=== PATIENT | male | born 1975 | race Two or more races ===

== ENCOUNTER 2019-06-05 09:30 | Outpatient (CLI) | payer OTHER ==
[2019-06-05] MEDS ORDERED: None at this Time (10:34)
== END 2019-06-05 23:59 | disposition home or self-care (01) ==
LOC: STAR 09:30
PROVIDERS: ATTEND Orthopaedic Surgery
DX: Z02.9 Encounter for administrative examinations, unspecified (principal)

== ENCOUNTER 2019-06-15 09:32 | Day surgery (SDC) | payer OTHER ==
[~2019-06-15] VITALS: Ht 182.9 cm; Wt 151.7 kg
[~2019-06-15 09:32] MED LIST: BUPIVACAINE/PF-EPI 0.5% 1:200K ONE; LIDOCAINE/PF 1%-EPI 1:200K, 30 ML ONE; None at this Time
[2019-06-15 09:56] VITALS: BP 158/109
[2019-06-15] MEDS ORDERED: LACTATED RINGERS 1,000 ML IV ONE (09:56)
[2019-06-15] MEDS ORDERED: BUPIVACAINE/PF-EPI 0.5% 1:200K ONE (11:17)
[2019-06-15] MEDS ORDERED: BACITRACIN 50,000 UNIT ONE (11:17)
[2019-06-15] MEDS ORDERED: MIDAZOLAM 1 MG/ML, 2ML ONE (12:12)
[2019-06-15] MEDS ORDERED: FENTANYL PF 100 MCG/2ML ONE (12:12)
[2019-06-15] MEDS ORDERED: PROPOFOL 10 MG/ML, 20ML ONE (13:10)
[2019-06-15] MEDS ORDERED: CEFAZOLIN 1,000 MG ONE ×2 (13:10)
[2019-06-15] MEDS ORDERED: DEXAMETHASONE 4 MG/ML, 1ML ONE (13:10)
[2019-06-15] MEDS ORDERED: ONDANSETRON 2MG/ML, 2ML ONE (13:10)
[2019-06-15] MEDS ORDERED: KETOROLAC 30 MG/1 ML ONE (13:10)
[2019-06-15] MEDS ORDERED: PROMETHAZINE 25 MG/ML, 1ML IV PRN (13:30)
[2019-06-15] MEDS ORDERED: OXYcodone 5 MG/5 ML ORAL.SOL UDC PO PRN (13:30)
[2019-06-15] MEDS ORDERED: MIDAZOLAM 1 MG/ML, 2ML IV PRN (13:30)
[2019-06-15] MEDS ORDERED: HYDROmorphone 2 MG/ML, 1ML IVPush PRN (13:30)
[2019-06-15] MEDS ORDERED: FENTANYL PF 100 MCG/2ML IV PRN (13:30)
[2019-06-15] MEDS ORDERED: hydrALAzine 20 MG/ML, 1ML IV PRN (13:30)
[2019-06-15] MEDS ORDERED: ALBUTEROL/IPRATROPIUM 2.5MG/0.5MG, 3 ML NPPB PRN (13:30)
[2019-06-15] MEDS ORDERED: METOPROLOL 1 MG/ML, 5ML IV PRN (13:30)
[2019-06-15] MEDS ORDERED: ACETAMINOPHEN 325 MG TABLET PO PRN (13:30)
[2019-06-15] MEDS ORDERED: OXYcodone 5 MG/5 ML ORAL.SOL UDC ONE (13:41)
== END 2019-06-15 15:05 | disposition home or self-care (01) ==
LOC: OUT 09:32
PROVIDERS: ATTEND Orthopaedic Surgery
DX: M60.261 Foreign body granuloma of soft tissue, not elsewhere classified, right lower leg (principal); E66.01 Morbid (severe) obesity due to excess calories; Z68.42 Body mass index [BMI] 45.0-49.9, adult
CPT/HCPCS: 10120; 73590; J0690; J1100; J1885; J2250; J2405; J2704; J3010; J3490; J7120; 76000